=== PATIENT | female | born 1935 | race Caucasian/White ===

== ENCOUNTER 2019-12-23 00:27 | Inpatient (IN) | payer MEDICARE, OTHER ==
[2019-12-23 01:11] LABS: #Lymphocytes 1.3 thou/uL (1.20-3.40); #Monocytes 0.3 thou/uL (0.11-0.59); #Neutrophils 5.4 thou/uL (1.40-6.50); %Basophils 0.7 % (0.0-1.0); %Eosinophils 0.1 % (0.0-10.0); %Monocytes 4.4 % (0.0-10.0); %Neutrophils 76.8 % (42.0-75.0); Hemoglobin 7.3 g/dL (12.0-16.0); Mean Corpuscular HGB CONC 32.9 g/dL (32.0-36.0); Mean Corpuscular Hemoglobin 29.4 pg (27.0-31.0); Mean Corpuscular Volume 89.4 fL (78.0-98.0); Mean Platelet Volume 8.7 fL (7.4-10.4); Platelet Count 161 thou/uL (130-400); RBC Distribution Width 13.2 % (11.5-14.5); White Blood Cell (WBC) Count 7.1 thou/uL (4.8-10.8)
[2019-12-23] MEDS: Dextrose 5 % And 0.9 % NaCl 1,000 ML IV SCH ×3 (02:57→21:25)
[2019-12-23] MEDS ORDERED: Sodium Chloride 0.9% (PF) 10 ML VIAL FS PRN (03:00)
--- NOTE | 2019-12-23 03:02 | HP ---
REASON FOR ADMISSION: Anemia. HISTORY OF PRESENT ILLNESS: This is an 84-year-old female patient, who today felt weak and became nauseous and started having episodes of vomiting. She described the vomitus as dark colored. She called her son who tried to help her to drink some Gatorade, but she vomited the Gatorade and for that reason, he called the ambulance. Up on the EMS arrival, she could not stand up and she did lose consciousness. She was brought to the ER at [place]. She was reported to be covered with red blood. The patient does not recall having blood through her rectum. In our emergency room, she had a small amount of dark stool. At [place], she did receive 1 unit of PRBC. In our emergency room, her blood pressure appears to be stable. Her heart rate is less than 100. She appears to be doing better. Denies abdominal pain. She does report being on naproxen for a year. She takes two naproxen a day and also she takes sulindac on a daily basis for her osteoarthritis. She reports experiencing two episodes of epigastric pain that resolved spontaneously. PAST MEDICAL HISTORY: 1. Benign positional vertigo. 2. High blood pressure. 3. Hypothyroidism. 4. Status post bladder lift. 5. Cataract surgery. 6. . 7. Cholecystectomy. 8. Appendectomy. 9. Corneal transplant. 10. Back surgery and chronic back pain. 11. Osteoarthritis. ALLERGIES: TO CODEINE WHICH MAKES HER NAUSEOUS. PENICILLIN, WHICH GIVES HER RASH AND SULFA. SOCIAL HISTORY: She does not smoke. Does not drink alcohol. FAMILY HISTORY: Negative for premature coronary artery disease. REVIEW OF SYSTEMS: All systems reviewed, except the above mentioned, found to be negative. PHYSICAL EXAMINATION: GENERAL: Awake, alert, oriented, does not appear in distress. VITAL SIGNS: Her blood pressure is 136/71, heart rate of 75, temperature is 98.7, saturating 100% on 2 L nasal cannula. HEENT: Head is nontraumatic, normocephalic. Pupils equal, reactive. Extraocular movements are intact. Nonicteric sclerae. Well injected conjunctivae. Oral mucosa normal. Nasal mucosa normal. NECK: Supple. No adenopathy. No murmur. Thyroid is not palpable. Trachea is midline. No supraclavicular adenopathy. HEART: S1, S2 regular. No murmur. No gallops. No friction rubs. No displacement of PMI. LUNGS: Clear to auscultation bilaterally. No wheezes, rhonchi, no crackles. Bowel sounds are positive. Nontender abdomen. No hepatosplenomegaly. EXTREMITIES: No lower extremity edema. No cyanosis. NEURO: Cranial nerves 2 through 12 within normal limits. Normal motor function. Normal sensory function reflexes. LABORATORY DATA: Blood work shows sodium 138, potassium 3.9, bicarb of 23, BUN of 46.6, creatinine 0.8, TSH of 0.2556. Troponin less than 0.01. CK 140, CK-MB 2.8. Hemoglobin initially 6.9, repeat in our hospital is 7.3 after 1 unit of PRBCs. Platelets of 193. Urinalysis does not show any evidence of infection. INR is 1.1. EKG shows normal sinus rhythm per my read. ASSESSMENT AND PLAN: This is an 84-year-old female patient, who is presenting with severe anemia, episode of hypotension in the setting of rectal bleed versus upper gastrointestinal bleed secondary to chronic usage of NSAIDs. GI: The patient does not remember that she had rectal bleeding. This was noted at the ER in [place] here. She did have dark stools, but small amount. She could have an upper gastrointestinal bleed, but also a lower gastrointestinal bleed. She currently has not had any further episodes of bleeding. We will keep her n.p.o. We will start her on IV Protonix. We will monitor her H and H. GI is aware of her and they will see her in the morning. We will hold all NSAIDs. For deep venous thrombosis prophylaxis, will be on SCDs. Cardiac: The patient has high blood pressure. For now, we will hold off on her antihypertensive agents. She is currently normotensive. The patient has history of hypothyroidism. We will resume levothyroxine when she is no longer n.p.o. I did discuss with her code status. She wishes to be a full code. Job ID: [id number]
[2019-12-23 06:03] LABS: Anion Gap 11 mmol/L (10-20); BUN (Urea Nitrogen) 39 mg/dL (9.8-20.1); Calc. Creatinine Clearance 0 mL/min (70-130); Calcium 6.9 mg/dL (7.8-10.44); Carbon Dioxide 16 mmol/L (23-31); Chloride 116 mmol/L (98-107); Estimated GFR-MDRD Greater than 90; Glucose 83 mg/dL (83-110); Potassium 4.3 mmol/L (3.5-5.1); Sodium 139 mmol/L (136-145)
[2019-12-23 06:07] LABS: Band 4 % (5-11); Eosinophils 2 % (0-10); Hemoglobin 8.1 g/dL (12.0-16.0); Lymphocytes 28 % (21-51); MDiff Complete? YES; Mean Corpuscular HGB CONC 31.8 g/dL (32.0-36.0); Mean Corpuscular Hemoglobin 29.6 pg (27.0-31.0); Mean Corpuscular Volume 93.1 fL (78.0-98.0); Mean Platelet Volume 9.8 fL (7.4-10.4); Monocytes 2 % (0-10); Neutrophil 64 % (42-75); Platelet Count 124 thou/uL (130-400); Platelet Morphology Comment Appears Adequate; RBC Distribution Width 13.3 % (11.5-14.5); Red Blood Cell (RBC) Count 2.73 mill/uL (4.20-5.40); White Blood Cell (WBC) Count 7.2 thou/uL (4.8-10.8)
[2019-12-23] MEDS: Pantoprazole 40 MG VIAL IVP SCH ×2 (08:35→21:25)
[2019-12-23] MEDS ORDERED: Ondansetron PF 4 MG/2 ML Vial ONE (08:51)
[2019-12-23] MEDS: Ondansetron PF 4 MG/2 ML Vial IVP PRN (08:51)
[2019-12-23 10:27] LABS: Hemoglobin 6.4 g/dL (12.0-16.0)
--- NOTE | 2019-12-23 11:52 | PDOC.HOSPP ---
- Subjective Encounter Date: 12/23/19 Encounter Time: 10:00 Subjective: is actively bleeding per rectum sbp dropped to 70's around 9.30 am, got fluid bolus has recieved total of 2 u prbc so far awake, no nausea or vomiting, has abd colic with moaning responds to verbal questions no chest pain or sob - Objective Result Diagrams: 12/23/19 10:19 12/23/19 05:29 Hospitalist ROS - Medication Medications: Active Medications Generic Name Dose Route Start Last Admin Trade Name Freq PRN Reason Stop Dose Admin Dextrose/Sodium Chloride 1,000 mls @ 75 mls/hr 12/23/19 02:30 12/23/19 02:57 D5 0.9% Ns IV 1,000 mls .[id number] BETHANY Administration Ondansetron HCl 4 mg 12/23/19 02:19 12/23/19 08:51 Ondansetron Pf 4 Mg/2 Ml Vial IVP 4 mg Q6H PRN Administration Nausea/Vomiting Pantoprazole Sodium 40 mg 12/23/19 09:00 12/23/19 08:35 Pantoprazole 40 Mg Vial IVP 40 mg Q12HR BETHANY Administration - Exam General Appearance: ill appearing General - other findings: pallor++ Eye: PERRL, anicteric sclera ENT: no oropharyngeal lesions, moist mucosa Neck: supple, no JVD Heart: RRR, no murmur Respiratory: no wheezes, no rales, rhonchi Gastrointestinal: soft, non-tender, non-distended, normal bowel sounds Extremities: no cyanosis, no edema Neurological: cranial nerve grossly intact, no focal deficits Hosp A/P (1) GI hemorrhage Code(s): K92.2 - GASTROINTESTINAL HEMORRHAGE, UNSPECIFIED Status: Acute Qualifiers: GI bleed type/associated pathology: unspecified gastrointestinal hemorrhage type Qualified Code(s): K92.2 - Gastrointestinal hemorrhage, unspecified (2) Acute blood loss anemia Code(s): D62 - ACUTE POSTHEMORRHAGIC ANEMIA Status: Acute (3) Hypothyroidism Code(s): E03.9 - HYPOTHYROIDISM, UNSPECIFIED Status: Chronic Qualifiers: Hypothyroidism type: unspecified Qualified Code(s): E03.9 - Hypothyroidism, unspecified (4) Benign positional vertigo Code(s): H81.10 - BENIGN PAROXYSMAL VERTIGO, UNSPECIFIED EAR Status: Chronic Qualifiers: Laterality: unspecified laterality Qualified Code(s): H81.10 - Benign paroxysmal vertigo, unspecified ear - Plan has recieved 2 u prbc, will need another 2 units, Hb around 6g now, hypotensive d/w , will see her shortly and scope if she remains unstable then transfer to [facility] protonix q12h, iv fluids h/o taking naprosyn 2/day and sulindac for osteoarthritis
[2019-12-23] MEDS ORDERED: Metoclopramide HCl 10 MG/2 ML VIAL ONE (13:20)
[2019-12-23 13:36] LABS: SARS-CoV-2 MS2 Positive; SARS-CoV-2 N Gene Negative; SARS-CoV-2 S Gene Negative; SARS-CoV-2 by NAA Not Detected (NotDetected); SARS-CoV-2 orf1ab Negative
[2019-12-23] MEDS ORDERED: Lidocaine 1% PF 5 ML VIAL ONE (13:46)
[2019-12-23] MEDS ORDERED: PROPOFOL 200 MG/20 ML VIAL ONE (13:46)
[2019-12-23] MEDS ORDERED: Fentanyl 100 MCG/2 ML VIAL ONE (17:03)
[2019-12-23 17:45] VITALS: BMI 23.1
--- NOTE | 2019-12-23 17:51 | CON ---
DATE OF CONSULTATION: 12/23/2019 REASON FOR CONSULTATION: Anemia, blood in stool, probable upper GI bleed. CONSULTING PROVIDER: Thelma Shaw MD HISTORY OF PRESENT ILLNESS: The patient is an 84-year-old female with past medical history of benign positional vertigo, hypertension, hypothyroidism, and chronic lower back pain and osteoarthritis, presenting with complaints of diarrhea, presyncope, and nausea and vomiting. She states that she was in her usual state of health until yesterday when she began having increased generalized weakness, nausea and vomiting of darker-colored material in addition to "feeling sick to my stomach." She was then evaluated by her son who tried to get her some Gatorade to drink which she promptly vomited again with more darker-colored emesis at that time. With the increased nausea and vomiting, it prompted her son to call EMS, which then transported her to [facility]. While at the [facility], she was noted to have a significantly decreased H and H and did have overt evidence of GI bleeding characterized as bright red/maroon-colored stool. Given the higher likelihood of an upper GI bleed, she was subsequently transferred to [facility] in [place], [place], for further evaluation. While in the ER, she had two additional burgundy-colored stools in addition to hypotension and tachycardia, for which the patient has been responding well with the infusion of both IV fluids and PRBCs. Currently, she states that she is feeling better, but does continue to have some mild abdominal discomfort that she could not characterize further. On further interviewing the patient, this has never happened before, but she does have a longstanding history of NSAID use consisting of both naproxen and sulindac, which she has been taking for years. Currently, she denies any fevers, chills, dysphagia, odynophagia, or weight loss. REVIEW OF SYSTEMS: A 10-category review of systems was obtained with all responses negative except for the pertinent positives as listed in HPI. PAST MEDICAL HISTORY: As per HPI. PAST SURGICAL HISTORY: Bladder lift surgery, cataract surgery, , cholecystectomy, appendectomy, and corneal transplant. FAMILY HISTORY: Denies any GI malignancies. SOCIAL HISTORY: No mention of any alcohol, tobacco, or IV drug use. OUTPATIENT MEDICATIONS: Reviewed. ALLERGIES: PENICILLIN, SULFA, AND CODEINE. PHYSICAL EXAMINATION: VITAL SIGNS: Temperature has not been recorded in the chart. However, heart rate 111, blood pressure 156/62, respiratory rate 22, saturating 93% on room air. GENERAL: The patient was lying in bed, in mild distress. Alert and oriented x4. HEENT: Normocephalic, atraumatic. NECK: Supple. No JVD or scleral icterus noted. CARDIOVASCULAR: Tachycardic rate, but regular rhythm. No discernible murmurs, gallops, or rubs. RESPIRATORY: Clear to auscultation bilaterally with no discernible wheezes or rales. ABDOMEN: Normoactive bowel sounds. Soft, nontender, and nondistended. EXTREMITIES: No cyanosis, clubbing, or edema. LABORATORY DATA: CBC with a white blood cell count of 7.2, hemoglobin 8.1, hematocrit 25.5, platelets 124. Chemistry with a sodium of 139, potassium 4.3, chloride 116, CO2 of 16, BUN 39, creatinine 0.62, glucose 83. IMAGING DATA: No current GI imaging is available for review. ASSESSMENT AND PLAN: The patient is an 84-year-old female with past medical history of benign positional vertigo, hypertension, hypothyroidism, chronic lower back pain and osteoarthritis, presenting with tachycardia, hypotension, and significant anemia consistent with an upper GI bleed. Upper GI bleeding. The patient was in her usual state of health until yesterday when she had generalized weakness, nausea, vomiting of dark-colored material and feeling generalized "sick to her stomach." She was subsequently seen at [facility], noted to have a significant anemia in addition to hematochezia concerning for GI bleed. With her transfer to [facility], she has had two additional episodes of burgundy/bright red blood per rectum and given her recent NSAID use, an elevated BUN to creatinine ratio is concerning for the presence of an upper GI bleed. Differential could include esophagitis, gastritis, duodenitis, peptic ulcer disease (more likely), arteriovenous malformation, Dieulafoy lesion and/or GI neoplasm. RECOMMENDATIONS: 1. Would continue to trend her H and H and transfuse as necessary to maintain an H and H of 7/21. 2. Continue to monitor clinically for signs of active GI bleeding. 3. Agree with IV fluids and resuscitation with blood products. 4. We will keep the patient n.p.o. in anticipation of EGD later today. 5. Would give the patient metoclopramide 10 mg IV x1 to clear her stomach and provide for more adequate visualization during upper endoscopy. 6. Further recommendations to follow upper endoscopy. We will continue to follow. Please call with any questions. Job ID: [id number]
[2019-12-23 18:19] LABS: #Lymphocytes 1.6 thou/uL (1.20-3.40); #Monocytes 0.5 thou/uL (0.11-0.59); #Neutrophils 6.1 thou/uL (1.40-6.50); %Basophils 0.5 % (0.0-1.0); %Eosinophils 0.5 % (0.0-10.0); %Lymphocytes 19.2 % (21.0-51.0); %Monocytes 6.3 % (0.0-10.0); %Neutrophils 73.5 % (42.0-75.0); Hemoglobin 9.3 g/dL (12.0-16.0); Mean Corpuscular HGB CONC 33.4 g/dL (32.0-36.0); Mean Corpuscular Hemoglobin 29.3 pg (27.0-31.0); Mean Corpuscular Volume 87.7 fL (78.0-98.0); Mean Platelet Volume 9.1 fL (7.4-10.4); Platelet Count 111 thou/uL (130-400); RBC Distribution Width 13.5 % (11.5-14.5); Red Blood Cell (RBC) Count 3.17 mill/uL (4.20-5.40); White Blood Cell (WBC) Count 8.3 thou/uL (4.8-10.8)
[2019-12-23 18:24] LABS: INR-International Normal Ratio 1.1; PTT 24.6 sec (22.9-36.1); Prothrombin Time 14.1 sec (12.0-14.7)
--- NOTE | 2019-12-23 20:09 | OP ---
DATE OF PROCEDURE: 12/23/2019 PROCEDURE: Esophagogastroduodenoscopy with biopsy. INDICATION FOR PROCEDURE: Blood in stool, melena, significant anemia. DESCRIPTION OF PROCEDURE: After the risks and benefits of the procedure were explained to the patient, including risks of bleeding, infection, perforation, reactions to anesthesia, aspiration, and/or pain, informed consent was obtained. The patient was then taken to the endoscopy suite where she was maneuvered into the left lateral decubitus position, followed by introduction of deep sedation via propofol and anesthesia support. Once adequate sedation was achieved, the standard gastroscope was introduced into the mouth with intubation of the esophagus, stomach, and the proximal small intestines with the findings listed below. The patient tolerated the procedure well with no immediate perioperative complications. Upon conclusion of the procedure, all equipments were removed from the patient and she was transferred to PACU in satisfactory condition. FINDINGS: Esophagus: Normal-appearing mucosa was seen in the proximal, mid, and distal esophagus. There was no evidence of erosions, ulcerations, mass lesions, or active/recent bleeding. Stomach: Normal-appearing mucosa was seen in the gastric cardia, fundus, and proximal body. However, a 4 mm clean-based ulceration was seen in the mid gastric body near the lesser curvature that did not display any high-risk stigmata of active or recent bleeding. Biopsies were taken from this ulceration with increased bleeding with these biopsies, but did actively resolve with direct visualization. Otherwise, normal-appearing mucosa was seen along the greater curvature as well as the incisura. Three 1 to 2 mm superficial clean-based ulcerations were also seen in the antrum and the pre-pyloric region. None of these ulcerations exhibited any high-risk stigmata of active or recent bleeding. Biopsies were also taken from these ulcerations for further evaluation. No blood or recent blood was seen throughout the entire stomach. Otherwise, there was no evidence of mass lesions or active/recent bleeding seen throughout the entire stomach. Duodenum: Normal-appearing mucosa was seen in both the duodenal bulb and second and third portion of the duodenum. The upper endoscope was advanced as far as it could with no evidence of blood or blood clot within the small intestine. There was no evidence of erosions, ulcerations, mass lesions, or active/recent bleeding. IMPRESSION: 1. Multiple gastric ulcerations with the largest measuring 4 mm in size along the lesser curvature, none of which exhibited high-risk stigmata of bleeding, now status post biopsies for evaluation of possible H. pylori versus NSAIDs. 2. Otherwise normal upper endoscopy. 3. No etiology for the patient's recent hematemesis or melena was seen during this examination. RECOMMENDATIONS: 1. Would continue to trend her H and H and transfuse as necessary to maintain an H and H of 10/20. 2. Continue to monitor clinically for signs of active GI bleeding. 3. Would place the patient on a clear-liquid diet today with monitoring of the patient overnight. If she continues to have a decrease in her H and H or she exhibits further evidence of clinical active bleeding, then I would prep her for colonoscopy for further evaluation. 4. Would avoid any anticoagulation in light of recent GI bleed. 5. Would continue pantoprazole 40 mg IV b.i.d. We will continue to follow. Please call with any questions. Job ID: [id number]
[2019-12-23] MEDS: Melatonin 3 MG TAB PO PRN (22:36)
[2019-12-24 05:59] LABS: #Basophils 0.1 thou/uL (0.0-0.2); #Eosinphils 0.3 thou/uL (0.0-0.7); #Lymphocytes 1.9 thou/uL (1.20-3.40); #Monocytes 0.7 thou/uL (0.11-0.59); #Neutrophils 5.4 thou/uL (1.40-6.50); %Basophils 0.8 % (0.0-1.0); %Eosinophils 3.9 % (0.0-10.0); %Lymphocytes 22.6 % (21.0-51.0); %Monocytes 7.8 % (0.0-10.0); %Neutrophils 64.9 % (42.0-75.0); Hemoglobin 7.2 g/dL (12.0-16.0); Mean Corpuscular HGB CONC 33.4 g/dL (32.0-36.0); Mean Corpuscular Hemoglobin 29.3 pg (27.0-31.0); Mean Corpuscular Volume 87.5 fL (78.0-98.0); Mean Platelet Volume 8.9 fL (7.4-10.4); Platelet Count 100 thou/uL (130-400); RBC Distribution Width 13.9 % (11.5-14.5); Red Blood Cell (RBC) Count 2.46 mill/uL (4.20-5.40); White Blood Cell (WBC) Count 8.4 thou/uL (4.8-10.8)
[2019-12-24] MEDS: Pantoprazole 40 MG VIAL IVP SCH ×2 (07:50→21:33)
[2019-12-24] MEDS ORDERED: Fluorometholone 0.1% Ophth Soln 5 ml Bottle R EYE SCH (09:45)
--- NOTE | 2019-12-24 13:36 | PDOC.HOSPP ---
- Subjective Encounter Date: 12/24/19 Encounter Time: 08:15 Subjective: wants eye drops for dry eyes no abd pain or nausea still has black stools - Objective Vital Signs & Weight: Vital Signs (12 hours) Temp Pulse Resp BP Pulse Ox 12/24/19 11:33 98.4 F 86 20 160/77 H 97 12/24/19 07:44 98.6 F 86 20 150/72 H 97 12/24/19 04:00 98.6 F 90 16 153/67 H 99 Weight Weight 143 lb 6 oz I&O: 12/23/19 12/24/19 12/25/19 06:59 06:59 06:59 Output Total 1000 Balance -1000 Result Diagrams: 12/24/19 05:22 12/23/19 05:29 Hospitalist ROS - Medication Medications: Active Medications Generic Name Dose Route Start Last Admin Trade Name Freq PRN Reason Stop Dose Admin Dextrose/Sodium Chloride 1,000 mls @ 75 mls/hr 12/23/19 02:30 12/23/19 21:25 D5 0.9% Ns IV 1,000 mls .[id number] BETHANY Administration Melatonin 3 mg 12/23/19 21:09 12/23/19 22:36 Melatonin 3 Mg Tab PO 3 mg HS PRN Administration Insomnia Ondansetron HCl 4 mg 12/23/19 02:19 12/23/19 08:51 Ondansetron Pf 4 Mg/2 Ml Vial IVP 4 mg Q6H PRN Administration Nausea/Vomiting Pantoprazole Sodium 40 mg 12/23/19 09:00 12/24/19 07:50 Pantoprazole 40 Mg Vial IVP 40 mg Q12HR BETHANY Administration - Exam General Appearance: awake alert, ill appearing General - other findings: pallor+ Eye: PERRL, anicteric sclera ENT: no oropharyngeal lesions, dry oral mucosa Neck: supple, no JVD Heart: RRR, no murmur Respiratory: no wheezes, no rales Gastrointestinal: soft, non-tender, non-distended, normal bowel sounds Extremities: no cyanosis, no edema Neurological: cranial nerve grossly intact, no focal deficits Psychiatric: normal affect, A&O x 3 Hosp A/P (1) GI hemorrhage Code(s): K92.2 - GASTROINTESTINAL HEMORRHAGE, UNSPECIFIED Status: Acute Qualifiers: GI bleed type/associated pathology: unspecified gastrointestinal hemorrhage type Qualified Code(s): K92.2 - Gastrointestinal hemorrhage, unspecified (2) Acute blood loss anemia Code(s): D62 - ACUTE POSTHEMORRHAGIC ANEMIA Status: Acute (3) Hypothyroidism Code(s): E03.9 - HYPOTHYROIDISM, UNSPECIFIED Status: Chronic Qualifiers: Hypothyroidism type: unspecified Qualified Code(s): E03.9 - Hypothyroidism, unspecified (4) Benign positional vertigo Code(s): H81.10 - BENIGN PAROXYSMAL VERTIGO, UNSPECIFIED EAR Status: Chronic Qualifiers: Laterality: unspecified laterality Qualified Code(s): H81.10 - Benign paroxysmal vertigo, unspecified ear - Plan has recieved total of 4 u prbc this admission s/p EGD 12/22, no active bleeding seen, has H.pylori +ve gastritis serial h/h, had drop in her Hb this am to 7g from 9g earlier protonix q12h, iv fluids, oral diet per GI advice h/o taking naprosyn 2/day and sulindac for osteoarthritis
[2019-12-24] MEDS ORDERED: Furosemide 40 MG/4 ML VIAL SLOW IVP SCH (13:45)
[2019-12-24 14:02] LABS: Hemoglobin 6.9 g/dL (12.0-16.0)
[2019-12-24 15:56] LABS: ALT (SGPT) 14 U/L (8-55); AST (SGOT) 15 U/L (5-34); Albumin 2.1 g/dL (3.4-4.8); Alkaline Phosphatase 44 U/L (40-110); Anion Gap 8 mmol/L (10-20); BUN (Urea Nitrogen) 28 mg/dL (9.8-20.1); Bilirubin, Total 0.3 mg/dL (0.2-1.2); Calc. Creatinine Clearance 71 mL/min (70-130); Calcium 7.2 mg/dL (7.8-10.44); Carbon Dioxide 20 mmol/L (23-31); Chloride 115 mmol/L (98-107); Estimated GFR-MDRD Greater than 90; Globulin 1.4 g/dL (2.4-3.5); Glucose 98 mg/dL (83-110); Potassium 3.4 mmol/L (3.5-5.1); Protein, Total 3.5 g/dL (6.0-8.3); Sodium 140 mmol/L (136-145)
--- NOTE | 2019-12-24 15:59 | PRG ---
DATE OF SERVICE: 12/24/2019 SUBJECTIVE: Ms. Ratliff is resting in bed. She states she does not feel all that well. She is concerned that she is having swelling. She denies any shortness of breath. She has had some mild nausea. She has had a little bit of soup, but nothing else. The nurses report she has had no bowel movements. They have emptied her catheter twice today. I have talked to Dr. Samayoa, primary physician. He is concerned as her hemoglobin dropped back down from 9.3 yesterday evening after she finished her transfusion to 7.2 this morning. She is 6.9 this afternoon. Again, on talking with her nurse, she said she has had no bowel movements. MEDICATIONS: Presently, 1. Normal saline at 75. 2. Furosemide 40, just ordered. 3. Melatonin. 4. Zofran p.r.n. 5. Protonix 40 IV q.12 hours. 6. Eye drops. PHYSICAL EXAMINATION: VITAL SIGNS: Temperature is 98, pulse 86, blood pressure 160/70. HEENT: Conjunctiva are pale pink. Sclera are clear. Oropharynx is dry, but pink. LUNGS: Clear. HEART: Regular rate and rhythm without clicks or murmurs. ABDOMEN: Soft and nontender with no rebound or guarding. EXTREMITIES: Reveal 2 to 3+ edema. LABORATORY DATA: White count 28.4. Hemoglobin was 7.2, it was 9.3 yesterday after receiving a unit of blood at outside hospital and 3 units of blood here. Her hemoglobin had been 7.3 on presentation here and it had dropped to 6.4 yesterday. Platelets are 100,000, down from 161 on admission. INR was 1.1. BUN and creatinine were 39 and 0.6 yesterday. ASSESSMENT: 1. Gastrointestinal bleed with history, seen yesterday by Dr. Allred and had an upper endoscopy with ulcers found in the incisura and small antral ulcers. None were very large. None were bleeding. There was no obvious clot in the stomach. Her stigmata indicate high risk for bleeding. She was taking heavy doses of nonsteroidal anti-inflammatory drugs at home. Biopsy did show Helicobacter pylori. 2. Drop in hemoglobin slightly today with edema, but she has passed no bowel movement at all. I think ongoing hemorrhage is unlikely. RECOMMENDATIONS: 1. Agree with plan to transfuse further blood, 1 unit would probably be fine, 2 is okay if that is what has already been decided. 2. Agree with Lasix with transfusion. 3. We will check a CMP to look at liver function in light of her problems with edema. 4. If she would have overt bleeding, we can consider tagged blood cell scan at this time, but she is very frail and with her edema, I do not think it would be a good idea to proceed with an elective colonoscopy at this time, although it is possible that her bleeding site could be her right colon with ulcers there from NSAIDs or other etiology. With no overt hemorrhage, her age, and comorbidities, we would hold off for now. Job ID: [id number]
[2019-12-24] MEDS: Ondansetron PF 4 MG/2 ML Vial IVP PRN ×2 (16:32→22:29)
--- NOTE | 2019-12-24 17:00 | PDOC.FMACP ---
Advance Care Planning - Problem (1) Palliative care encounter Status: Acute Code(s): Z51.5 - ENCOUNTER FOR PALLIATIVE CARE (2) Acute blood loss anemia Status: Acute Code(s): D62 - ACUTE POSTHEMORRHAGIC ANEMIA (3) GI hemorrhage Status: Acute Code(s): K92.2 - GASTROINTESTINAL HEMORRHAGE, UNSPECIFIED Qualifiers: GI bleed type/associated pathology: unspecified gastrointestinal hemorrhage type Qualified Code(s): K92.2 - Gastrointestinal hemorrhage, unspecified - Note Participants: patient, family, palliative care Summary: Palliative Care introduced Advanced Care Planning, opportunity to decline. The diagnosis, prognosis and goals of care were discussed. Appropriate forms and documentation to accomplish the goals of care were discussed. All questions were answered. Elected to complete MPOA and Directive to Physician. Original and copy given to patient, copy placed on chart for medical records. Time Spent (mins): 15
--- NOTE | 2019-12-24 20:44 | NM ---
NUCLEAR MEDICINE GI BLEEDING SCAN: 12/24/19 PROVIDED CLINICAL HISTORY: GI bleed. FINDINGS: 29.3 millicuries technetium 99m labeled tagged red blood cells were given intravenously followed by a nterior planar imaging over the abdomen for 93 minutes. There is a normal distribution of radiotracer . There is gradual focal accumulation of radiotracer overlying the left mid abdomen beginning about t he 81 or 82 minute image in the expected location of the mid descending colon. Although this does not move on progressive images this is suspicious site of active GI bleeding. IMPRESSION: Focal radiotracer accumulation overlying the expected location of the descending colon is suspicious for site of GI bleed. POS: [facility]
[2019-12-24] MEDS: Dextrose 5 % And 0.9 % NaCl 1,000 ML IV SCH (21:33)
[2019-12-24] MEDS ORDERED: diphenhydrAMINE 25 MG CAP PO SCH (22:45)
[2019-12-25 04:27] LABS: Hemoglobin 8.3 g/dL (12.0-16.0)
[2019-12-25 04:41] LABS: Anion Gap 8 mmol/L (10-20); BUN (Urea Nitrogen) 27 mg/dL (9.8-20.1); Calc. Creatinine Clearance 69 mL/min (70-130); Calcium 7.1 mg/dL (7.8-10.44); Carbon Dioxide 24 mmol/L (23-31); Chloride 112 mmol/L (98-107); Estimated GFR-MDRD Greater than 90; Glucose 88 mg/dL (83-110); Potassium 3.1 mmol/L (3.5-5.1); Sodium 141 mmol/L (136-145)
[2019-12-25] MEDS: Fluorometholone 0.1% Ophth Soln 5 ml Bottle R EYE SCH (08:12)
[2019-12-25] MEDS: Pantoprazole 40 MG VIAL IVP SCH ×2 (08:13→19:26)
[2019-12-25] MEDS: Dextrose 5 % And 0.9 % NaCl 1,000 ML IV SCH ×2 (08:13→19:27)
[2019-12-25] MEDS: Ondansetron PF 4 MG/2 ML Vial IVP PRN ×2 (08:13→12:28)
[2019-12-25] MEDS: Polyvinyl Alcohol 1.4%/Povidone 0.6% Opth Drops EA EYE SCH (08:34)
[2019-12-25] MEDS ORDERED: GoLYTELY 4,000 ml Bottle PO SCH (09:00)
--- NOTE | 2019-12-25 11:28 | PDOC.HOSPP ---
- Subjective Encounter Date: 12/25/19 Encounter Time: 07:15 Subjective: no abd pain, has nausea had one bm yesterday/early am no dizziness or chest pain - Objective Vital Signs & Weight: Vital Signs (12 hours) Temp Pulse Pulse Resp BP BP Pulse Ox 12/25/19 07:58 98.6 F 77 20 146/78 H 97 12/25/19 04:00 98.1 F 82 16 136/72 96 12/25/19 01:40 98.8 F 82 18 137/77 95 Weight Weight 143 lb 6 oz I&O: 12/24/19 12/25/19 12/26/19 06:59 06:59 06:59 Intake Total 1075 Output Total 1000 775 Balance -1000 300 Result Diagrams: 12/25/19 04:01 12/25/19 04:01 Hospitalist ROS - Medication Medications: Active Medications Generic Name Dose Route Start Last Admin Trade Name Freq PRN Reason Stop Dose Admin Fluorometholone 1 drop 12/25/19 09:00 12/25/19 08:12 Fluorometholone 0.1% Ophth Soln 5 Ml Bottle R EYE 1 drp DAILY BETHANY Administration Dextrose/Sodium Chloride 1,000 mls @ 75 mls/hr 12/23/19 02:30 12/25/19 08:13 D5 0.9% Ns IV Not Given .[id number] BETHANY Melatonin 3 mg 12/23/19 21:09 12/23/19 22:36 Melatonin 3 Mg Tab PO 3 mg HS PRN Administration Insomnia Ondansetron HCl 4 mg 12/23/19 02:19 12/25/19 08:13 Ondansetron Pf 4 Mg/2 Ml Vial IVP 4 mg Q6H PRN Administration Nausea/Vomiting Pantoprazole Sodium 40 mg 12/23/19 09:00 12/25/19 08:13 Pantoprazole 40 Mg Vial IVP 40 mg Q12HR BETHANY Administration Polyethylene Glycol/Electrolytes 4,000 ml 12/25/19 09:00 12/25/19 10:30 Golytely 4,000 Ml Bottle PO 12/25/19 23:59 4,000 ml NOW BETHANY Administration Polyvinyl Alcohol/Povidone 0 each 12/25/19 09:00 12/25/19 08:34 Polyvinyl Alcohol 1.4%/Povidone 0.6% Opth Drops EA EYE 1 each DAILY BETHANY Administration Sodium Chloride 10 ml 12/23/19 03:00 12/25/19 08:12 Sodium Chloride 0.9% (Pf) 10 Ml Vial FS 10 ml PRN PRN Administration RECONSTITUTION - Exam General Appearance: awake alert Eye: PERRL, anicteric sclera ENT: no oropharyngeal lesions, moist mucosa Neck: supple, no JVD Heart: RRR, no murmur Respiratory: no wheezes, no rales Gastrointestinal: soft, non-tender, non-distended, normal bowel sounds Extremities: no cyanosis, 1+ LE edema Neurological: cranial nerve grossly intact, no focal deficits Psychiatric: normal affect, A&O x 3 Hosp A/P (1) GI hemorrhage Code(s): K92.2 - GASTROINTESTINAL HEMORRHAGE, UNSPECIFIED Status: Acute Qualifiers: GI bleed type/associated pathology: unspecified gastrointestinal hemorrhage type Qualified Code(s): K92.2 - Gastrointestinal hemorrhage, unspecified (2) Acute blood loss anemia Code(s): D62 - ACUTE POSTHEMORRHAGIC ANEMIA Status: Acute (3) Hypothyroidism Code(s): E03.9 - HYPOTHYROIDISM, UNSPECIFIED Status: Chronic Qualifiers: Hypothyroidism type: unspecified Qualified Code(s): E03.9 - Hypothyroidism, unspecified (4) Benign positional vertigo Code(s): H81.10 - BENIGN PAROXYSMAL VERTIGO, UNSPECIFIED EAR Status: Chronic Qualifiers: Laterality: unspecified laterality Qualified Code(s): H81.10 - Benign p aroxysmal vertigo, unspecified ear - Plan has recieved total of 5 here and one in [facility] prbc this admission s/p EGD 12/22, no active bleeding seen, has H.pylori +ve gastritis, for treatment once she stabilizes with bleeding now. serial h/h protonix q12h, iv fluids for colonoscopy in am h/o taking naprosyn 2/day and sulindac for osteoarthritis
[2019-12-25] MEDS ORDERED: Furosemide 40 MG/4 ML VIAL SLOW IVP SCH (11:30)
--- NOTE | 2019-12-25 11:37 | PRG ---
DATE OF SERVICE: 12/25/2019 SUBJECTIVE: Ms. Ratliff is not having any abdominal pain. She does feel weak. She continues to have nausea but no vomiting. She had a single bowel movement overnight, which was dark black in color; with 2 units of RBC transfusion again last night, hemoglobin came up from 6.9 to 8.3. Her tagged RBC scan yesterday evening appeared to show bleeding source in the left mid abdomen, which is estimated to be descending colon. She is on clear liquid diet right now. OBJECTIVE: VITAL SIGNS: Temperature 98.6, pulse 77, blood pressure 146/78, 97% oxygen saturation on room air. GENERAL: Frail, pale, 84-year-old woman, lying in bed comfortably, in no acute distress. HEART: Regular rate and rhythm. LUNGS: Clear to auscultation bilaterally. ABDOMEN: Nondistended. Bowel sounds present. Soft and nontender to palpation. EXTREMITIES: 1+ bilateral lower extremity edema. LABORATORY STUDIES: Hemoglobin 8.3, WBC 8.4, platelets 100. INR 1.1. Sodium 141, potassium 3.1, BUN 27, creatinine 0.60, total bilirubin 0.3, alkaline phosphatase 44, AST 15, ALT 14, albumin 2.1. COVID PCR is negative. IMAGING STUDIES: Nuclear medicine GI bleeding scan yesterday appeared to show active hemorrhage in the left mid abdomen, which is estimated to represent descending colon. ASSESSMENT/PLAN: 1. Gastrointestinal bleeding, with tagged RBC scan suggesting descending colon source. 2. Acute blood loss anemia, the patient has required 5 units of RBCs this admission, hemoglobin currently 8.3. 3. Helicobacter pylori gastritis with ulcer, seen on EGD two days ago, 12/23/2019. I had a long discussion with the patient this morning, though she is not having bright red blood per rectum and stool output seems to be slowing down, the tagged RBC scan did suggest a left colon bleeding source last night. She says her last colonoscopy would have been many years ago. I think we are going to have to proceed with diagnostic colonoscopy for further evaluation. She is feeling nauseated today, but we are going to try to administer bowel preparation, we will go ahead and start now and allow her to go slowly over the course of the day. We will plan for colonoscopy tomorrow morning. In the meantime, continue to trend H and H, transfuse as needed. 4. Helicobacter pylori gastritis with ulcer. The patient is going to need treatment with triple therapy. We can get her started on this following resolution of the acute bleeding episode. Job ID: [id number]
[2019-12-25 15:39] LABS: Hemoglobin 8.1 g/dL (12.0-16.0)
[2019-12-25] MEDS ORDERED: Ondansetron PF 4 MG/2 ML Vial IVP PRN (15:55)
[2019-12-26] MEDS: Melatonin 3 MG TAB PO PRN (00:17)
[2019-12-26 01:08] LABS: Hemoglobin 6.3 g/dL (12.0-16.0)
--- NOTE | 2019-12-26 01:47 | PDOC.EVN ---
Event Note - Event Note Event Note: Patient finishing her colonoscopy prep this morning and still passing black tarry stools. Previous H/H six hours ago was 8.1/22.6 and now it is 6.3/18.1. Does have report of some weakness but also feels it is possibly from the prep itself. Discussed patient with Dr. Oglesby, will transfuse 2 additional units of packed cells. Continue to monitor H&H.
[2019-12-26] MEDS ORDERED: Calcium Gluc 4.6 MEQ/10 ML (100 MG/ML) SLOW IVP SCH (07:17)
[2019-12-26] MEDS ORDERED: Heparin 1,000 UNITS/ML VIAL ONE (09:08)
[2019-12-26] MEDS: Polyvinyl Alcohol 1.4%/Povidone 0.6% Opth Drops EA EYE SCH (10:00)
[2019-12-26] MEDS: Fluorometholone 0.1% Ophth Soln 5 ml Bottle R EYE SCH (10:00)
[2019-12-26] MEDS: Pantoprazole 40 MG VIAL IVP SCH ×2 (10:00→20:32)
[2019-12-26 12:10] LABS: Hemoglobin 9.4 g/dL (12.0-16.0)
--- NOTE | 2019-12-26 12:15 | PDOC.HOSPP ---
- Subjective Encounter Date: 12/26/19 Encounter Time: 09:40 Subjective: had colonoscopy with repeat egd this am no active bleeding per rectum not dizzy this am son at bedside - Objective Vital Signs & Weight: Vital Signs (12 hours) Temp Pulse Pulse Resp BP BP Pulse Ox 12/26/19 07:28 98.5 F 77 16 137/75 96 12/26/19 06:19 98.3 F 82 17 148/73 H 97 12/26/19 06:03 98.8 F 81 18 135/70 100 12/26/19 05:19 98.1 F 80 17 135/76 97 12/26/19 04:31 98.0 F 81 17 126/69 97 12/26/19 02:45 98.4 F 89 17 129/60 97 12/26/19 02:30 98.8 F 91 18 132/71 12/26/19 00:31 98.3 F 92 18 142/78 H 90 L Weight Weight 143 lb 6 oz I&O: 12/25/19 12/26/19 12/27/19 06:59 06:59 06:59 Intake Total 1075 2700 Output Total 775 600 Balance 300 2100 Result Diagrams: 12/26/19 11:46 12/25/19 04:01 Hospitalist ROS - Medication Medications: Active Medications Generic Name Dose Route Start Last Admin Trade Name Freq PRN Reason Stop Dose Admin Fluorometholone 1 drop 12/25/19 09:00 12/26/19 10:00 Fluorometholone 0.1% Ophth Soln 5 Ml Bottle R EYE 1 drp DAILY BETHANY Administration Dextrose/Sodium Chloride 1,000 mls @ 75 mls/hr 12/23/19 02:30 12/25/19 19:27 D5 0.9% Ns IV 1,000 mls .[id number] BETHANY Administration Melatonin 3 mg 12/23/19 21:09 12/26/19 00:17 Melatonin 3 Mg Tab PO 3 mg HS PRN Administration Insomnia Pantoprazole Sodium 40 mg 12/23/19 09:00 12/26/19 10:00 Pantoprazole 40 Mg Vial IVP 40 mg Q12HR BETHANY Administration Polyvinyl Alcohol/Povidone 0 each 12/25/19 09:00 12/26/19 10:00 Polyvinyl Alcohol 1.4%/Povidone 0.6% Opth Drops EA EYE 1 each DAILY BETHANY Administration Sodium Chloride 10 ml 12/23/19 03:00 12/25/19 08:12 Sodium Chloride 0.9% (Pf) 10 Ml Vial FS 10 ml PRN PRN Administration RECONSTITUTION - Exam General Appearance: awake alert Eye: PERRL, anicteric sclera ENT: no oropharyngeal lesions, dry oral mucosa Neck: supple, no JVD Heart: RRR, no murmur Respiratory: no wheezes, no rales Gastrointestinal: soft, non-tender, non-distended, normal bowel sounds Extremities: no cyanosis, no edema Neurological: cranial nerve grossly intact, no focal deficits Psychiatric: normal affect, A&O x 3 Hosp A/P (1) GI hemorrhage Code(s): K92.2 - GASTROINTESTINAL HEMORRHAGE, UNSPECIFIED Status: Acute Qualifiers: GI bleed type/associated pathology: unspecified gastrointestinal hemorrhage type Qualified Code(s): K92.2 - Gastrointestinal hemorrhage, unspecified (2) Acute blood loss anemia Code(s): D62 - ACUTE POSTHEMORRHAGIC ANEMIA Status: Acute (3) Hypothyroidism Code(s): E03.9 - HYPOTHYROIDISM, UNSPECIFIED Status: Chronic Qualifiers: Hypothyroidism type: unspecified Qualified Code(s): E03.9 - Hypothyroidism, unspecified (4) Benign positional vertigo Code(s): H81.10 - BENIGN PAROXYSMAL VERTIGO, UNSPECIFIED EAR Status: Chronic Qualifiers: Laterality: unspecified laterality Qualified Code(s): H81.10 - Benign paroxysmal vertigo, unspecified ear - Plan has recieved total of 7 u prbc's here and one in [facility] this admission s/p EGD 12/22, no active bleeding seen, has H.pylori +ve gastritis, for treatment once she stabilizes with bleeding now. repeat EGD and Colonoscopy today 12/25, no active bleeding source, d/w serial h/h protonix q12h, iv fluids, liq diet h/o taking naprosyn 2/day and sulindac for osteoarthritis seen ambulating in hallway without assistance d/w son 12/24, 12/25.
[2019-12-26] MEDS: Dextrose 5 % And 0.9 % NaCl 1,000 ML IV SCH ×2 (12:24→16:54)
[2019-12-26] MEDS ORDERED: PROPOFOL 200 MG/20 ML VIAL ONE (13:25)
--- NOTE | 2019-12-26 14:13 | OP ---
DATE OF PROCEDURE: 12/26/2019 [employer] SURGEON: None. PROCEDURES PERFORMED: 1. Colonoscopy, incomplete. 2. Esophagogastroduodenoscopy, diagnostic. INDICATIONS: 1. Acute blood loss anemia, requiring multiple transfusions this hospitalization. 2. Suspicious for gastrointestinal bleed, based on melenic-appearing stools. 3. Tagged RBC scan suggesting bleeding in the left abdomen, potentially left colonic source. MEDICATIONS: See Anesthesia record. FINDINGS: After discussion of the risks, benefits, and alternatives of the procedure, informed consent was obtained and witnessed. Pre-endoscopic cardiopulmonary examination was satisfactory. Time-out was performed before sedation was achieved. Sedation was achieved with Anesthesia assistance in the endoscopy unit. Digital rectal exam was performed, which was unremarkable. A Pentax adult colonoscope was inserted into the anus and passed forward in the usual fashion. The entire colon was extremely tortuous. There was a lot of looping of the scope, requiring manual pressure and loop reduction as well as the patient position changes to the supine position. Despite all of these measures, I was unable to advance the scope beyond the hepatic flexure. I was able to get a good examination of the transverse colon and left colon, but I was not able to examine the right colon. Where examined, the colonic mucosa all appeared normal. There was no evidence of any old blood or fresh blood in the colon at all. The effluent was clear. There were diverticula in the descending colon and especially the sigmoid colon, but no evidence of any inflammation. There were no polyps or mass lesions visualized. Careful forward view of the rectum was unremarkable. The colonoscope was completely withdrawn and it was decided to proceed with repeat upper endoscopy. A Pentax adult upper endoscope was placed into the oropharynx and passed through the cricopharyngeus under direct visualization. The esophageal mucosa appeared normal throughout. The endoscope was advanced into the stomach. Forward and retroflexed views of the entire gastric mucosa were obtained. There were 2 small, bland, shallow, clean-based ulcerations in the gastric antrum. There was no evidence of recent bleeding or any stigmata of high risk for bleeding. The endoscope was passed through the pylorus, then into the first and second portions of the duodenum, which were unremarkable. There was no old blood or fresh blood on the upper exam. The upper endoscope was completely withdrawn and the patient allowed to recover. The patient tolerated the procedures well. There were no immediate postprocedure complications. IMPRESSION: 1. No old blood or fresh blood or active bleeding seen, effluent in the colon is clear. 2. Very tortuous colon, able to examine only to the hepatic flexure. The right colon was unable to be examined. 3. Left-sided colonic diverticulosis, with no evidence of bleeding, no evidence of diverticulitis. 4. Two small, bland, clean-based ulcers in the gastric antrum, with no stigmata of bleeding or high risk for rebleeding. 5. Otherwise normal esophagogastroduodenoscopy. RECOMMENDATIONS: 1. Continue to trend hemoglobin and hematocrit. 2. Observe for any further sign of overt bleeding. 3. If the patient's hemoglobin and hematocrit trend down further without significant overt bleeding visualized, then I would get a CT of the abdomen and pelvis to rule out intraabdominal bleed. 4. Full liquid diet today. Job ID: [id number]
[2019-12-26] MEDS: Ondansetron PF 4 MG/2 ML Vial IVP PRN ×2 (16:54→23:53)
[2019-12-26 19:21] LABS: Hemoglobin 7.9 g/dL (12.0-16.0)
--- NOTE | 2019-12-26 23:46 | NM ---
Nuclear medicine GI bleeding scan: 12/26/2019 10:52 PM HISTORY: 84-year-old female with gastrointestinal bleeding and anemia. Dr. Paredes discussed the positive finding of GI bleeding by telephone with nurse Angelica Hurt at 11:41 PM 12/26/2019 TECHNIQUE: IV injection of 28.7 mCi technetium 99m tagged erythrocytes. Anterior view dynamic scintigraphy of abdomen and pelvis for 93 minutes. Images viewed on cine loop. FINDINGS: There is strongly positive active intraluminal hemorrhage within a loop of bowel that begins in the l eft upper quadrant, and travels by peristalsis into other bowel loops. The path of this is not typical for large intestine. IMPRESSION: Positive for active gastrointestinal bleeding, probably in the small intestine, beginning in the left upper quadrant, probably in the jejunum
[2019-12-27 00:55] LABS: Hemoglobin 6.6 g/dL (12.0-16.0)
--- NOTE | 2019-12-27 01:19 | PDOC.EVN ---
Event Note - Event Note Event Note: Code [place] called due to hypotension in context of ongoing GI blood loss of unclear source. s/p total 8u PRBC's during the hospital stay. EGD/colonoscopy unrevealing source. Tagged RBC scan showing likely source in jejunum. Pt lying trendelenburg, BP 104/66, pale, responds to questions, HR 90's, LCTAB, CV S1, S2, ABD rounded NT, ND, BS +, extremities pale with delayed cap refill, melanic stool in diaper H/H - Laboratory Tests 12/25/19 12/25/19 12/26/19 04:01 15:21 00:56 Hgb 8.3 L 8.1 L 6.3 L 12/26/19 12/26/19 12/27/19 11:46 19:13 00:45 Hgb 9.4 L 7.9 L 6.6 L A/P: Active GI bleeding - 2L IV NS wide open in two IV's, transfuse 2u unmatched PRBC's now, spoke with Gen Surgery(Dr. Espana) regarding utility of exploratoy laparotomy and he will consider after resuscitative measures and transfusions in am, serial H/H, O2 via NC, continue Protonix IV, Zofran 8mg IV q6h prn Acute blood loss anemia - see above, transfuse by rapid infuser 2u PRBC's now Hypotension - secondary to blood loss, see above for mgmt, avoid ant ihypertensives Tachycardia - compensatory due to ongoing blood loss, telemetry monitoring Transfer to [facility] for close monitoring Critical care provided by me: 38min
[2019-12-27 01:52] VITALS: BP 52/37
[2019-12-27] MEDS: Ondansetron PF 4 MG/2 ML Vial IVP PRN ×2 (05:52→11:40)
[2019-12-27 06:57] LABS: #Eosinphils 0.1 thou/uL (0.0-0.7); #Lymphocytes 1.2 thou/uL (1.20-3.40); #Monocytes 0.6 thou/uL (0.11-0.59); #Neutrophils 8.6 thou/uL (1.40-6.50); %Basophils 0.5 % (0.0-1.0); %Eosinophils 0.7 % (0.0-10.0); %Lymphocytes 11.4 % (21.0-51.0); %Monocytes 5.6 % (0.0-10.0); %Neutrophils 81.7 % (42.0-75.0); Hemoglobin 9.5 g/dL (12.0-16.0); Mean Corpuscular HGB CONC 34.8 g/dL (32.0-36.0); Mean Corpuscular Hemoglobin 30.9 pg (27.0-31.0); Mean Corpuscular Volume 88.9 fL (78.0-98.0); Mean Platelet Volume 9.5 fL (7.4-10.4); Platelet Count 73 thou/uL (130-400); RBC Distribution Width 13.9 % (11.5-14.5); Red Blood Cell (RBC) Count 3.07 mill/uL (4.20-5.40); White Blood Cell (WBC) Count 10.5 thou/uL (4.8-10.8)
[2019-12-27 07:14] LABS: Anion Gap 10 mmol/L (10-20); BUN (Urea Nitrogen) 19 mg/dL (9.8-20.1); Calc. Creatinine Clearance 74 mL/min (70-130); Calcium 6.6 mg/dL (7.8-10.44); Carbon Dioxide 23 mmol/L (23-31); Chloride 112 mmol/L (98-107); Estimated GFR-MDRD Greater than 90; Glucose 100 mg/dL (83-110); Sodium 142 mmol/L (136-145)
[2019-12-27] MEDS ORDERED: Potassium Chloride 20 MEQ in Premix Bag 1 BAG IVPB SCH (07:45)
[2019-12-27] MEDS: Pantoprazole 40 MG VIAL IVP SCH ×2 (08:54→21:12)
[2019-12-27] MEDS: Fluorometholone 0.1% Ophth Soln 5 ml Bottle R EYE SCH (09:12)
[2019-12-27] MEDS: Polyvinyl Alcohol 1.4%/Povidone 0.6% Opth Drops EA EYE SCH (09:14)
--- NOTE | 2019-12-27 09:16 | PDOC.HOSPP ---
- Subjective Encounter Date: 12/27/19 Encounter Time: 09:15 Subjective: Ms. Ratliff was seen today in follow-up of GI blled and acute blood loss anemia. She was moved to the [facility] last night. She denies abdominal pain, but is complaining of severe nausea. - Objective Vital Signs & Weight: Vital Signs (12 hours) Temp Pulse Pulse Pulse Pulse Resp Resp 12/27/19 07:04 98.2 F 12/27/19 01:56 12/27/19 01:34 72 76 77 18 12/26/19 23:57 98.5 F 90 20 BP BP BP BP BP BP Pulse Ox 12/27/19 07:04 12/27/19 01:56 100 12/27/19 01:34 52/37 L 86/42 L 103/60 125/69 126/72 12/26/19 23:57 104/66 97 Pulse Ox 12/27/19 07:04 12/27/19 01:56 12/27/19 01:34 95 12/26/19 23:57 Weight Weight 143 lb 6 oz Most Recent Monitor Data Heart Rate from ECG 68 NIBP 138/61 NIBP BP-Mean 86 Respiration from ECG 14 SpO2 100 I&O: 12/26/19 12/27/19 12/28/19 06:59 06:59 06:59 Intake Total 2700 2700 Output Total 1800 400 Balance 900 2300 Result Diagrams: 12/27/19 06:45 12/27/19 06:45 Hospitalist ROS - Medication Medications: Active Medications Generic Name Dose Route Start Last Admin Trade Name Freq PRN Reason Stop Dose Admin Fluorometholone 1 drop 12/25/19 09:00 12/26/19 10:00 Fluorometholone 0.1% Ophth Soln 5 Ml Bottle R EYE 1 drp DAILY BETHANY Administration Melatonin 3 mg 12/23/19 21:09 12/26/19 00:17 Melatonin 3 Mg Tab PO 3 mg HS PRN Administration Insomnia Ondansetron HCl 4 mg 12/25/19 16:00 12/26/19 23:53 Ondansetron Pf 4 Mg/2 Ml Vial IVP 4 mg Q4H PRN Administration Nausea/Vomiting Ondansetron HCl 8 mg 12/27/19 01:38 12/27/19 05:52 Ondansetron Pf 4 Mg/2 Ml Vial IVP 8 mg Q6H PRN Administration Nausea/Vomiting Pantoprazole Sodium 40 mg 12/23/19 09:00 12/26/19 20:32 Pantoprazole 40 Mg Vial IVP 40 mg Q12HR BETHANY Administration Polyvinyl Alcohol/Povidone 0 each 12/25/19 09:00 12/26/19 10:00 Polyvinyl Alcohol 1.4%/Povidone 0.6% Opth Drops EA EYE 1 each DAILY BETHANY Administration Sodium Chloride 10 ml 12/23/19 03:00 12/25/19 08:12 Sodium Chloride 0.9% (Pf) 10 Ml Vial FS 10 ml PRN PRN Administration RECONSTITUTION - Exam Eye: PERRL, anicteric sclera Heart: RRR, no murmur, no gallops, no rubs, normal peripheral pulses Respiratory: CTAB, no wheezes, no rales, no ronchi, normal chest expansion, no tachypnea, normal percussion Gastrointestinal: soft, non-tender, non-distended, normal bowel sounds, no palpable masses, no hepatomegaly Extremities: no cyanosis, no edema Hosp A/P (1) Acute blood loss anemia Code(s): D62 - ACUTE POSTHEMORRHAGIC ANEMIA Status: Acute (2) GI hemorrhage Code(s): K92.2 - GASTROINTESTINAL HEMORRHAGE, UNSPECIFIED Status: Acute Qualifiers: GI bleed type/associated pathology: unspecified gastrointestinal hemorrhage type Qualified Code(s): K92.2 - Gastrointestinal hemorrhage, unspecified (3) Hypothyroidism Code(s): E03.9 - HYPOTHYROIDISM, UNSPECIFIED Status: Chronic Qualifiers: Hypothyroidism type: unspecified Qualified Code(s): E03.9 - Hypothyroidism, unspecified (4) Hypokalemia Code(s): E87.6 - HYPOKALEMIA Status: Acute - Plan * GI Bleed- the patient continues to have evidence of GI- Bleeding. * Discussed with Dr. Espana. It is still unclear where the bleeding is originating from. The Bleeding scans give differing findings. * Acute blood loss anemia- she has required massive transfusions * Hypothyroidism- may need to give the thyroid replacement IV , at 2/3 the dose if she remains NPO. * Continue to trend the H&H and transfuse as needed * Hypokalemia- continue to replace
[2019-12-27] MEDS: Promethazine HCl 25 MG in Sodium Chloride 0.9% 50 ML IVPB PRN (09:30)
[2019-12-27] MEDS: D5 1/2 NS w/40 mEq KCL 1,000 ML IV SCH ×3 (10:00→17:50)
--- NOTE | 2019-12-27 11:06 | PRG ---
DATE OF SERVICE: 12/27/2019 SUBJECTIVE: Yesterday evening, Ms. Ratliff started passing maroon blood clots again. She has continued to drop her H and H and required further transfusion this morning. She has now received 8 units of blood. Hemoglobin is currently 9.5. She has remained hemodynamically stable, but feeling weak and nauseated. There is no abdominal pain. Tagged RBC scan was done last night, and at this time, is highly suggestive of a jejunal bleed. OBJECTIVE: VITAL SIGNS: Temperature 98.2, pulse 68, blood pressure 138/61, and 100% oxygen saturation on room air. GENERAL: Pale, frail, no acute distress. HEART: Regular rate and rhythm. LUNGS: Clear to auscultation bilaterally. ABDOMEN: Nondistended. Bowel sounds present. Soft and nontender to palpation. EXTREMITIES: No peripheral edema. LABORATORY STUDIES: Sodium 142, potassium 3.0, BUN 19, creatinine 0.56, and calcium 6.6. COVID-PCR is negative. INR is 1.1. Hemoglobin went down to 6.6 around midnight, up to 9.5 after further transfusion. WBC is 10.5 and platelets 73. IMAGING STUDIES: Repeat nuclear medicine GI bleeding scan from last night showed strongly positive active intraluminal hemorrhage within a loop of bowel in the left upper quadrant traveling by peristalsis and other bowel loops, appears to be in the small intestine, probably the jejunum. ASSESSMENT AND PLAN: 1. Obscure overt gastrointestinal hemorrhage, persistent. 2. Acute blood loss anemia, has required massive transfusion this hospitalization of 8 units RBCs. 3. Gastric antral ulcers x2, small and clean based, these were not felt to be the source of any hemorrhage. 4. Colonic diverticulosis, also not felt to be the source of hemorrhage. I discussed the case with Dr. Espana who evaluated her this morning. The patient is not a good surgical candidate. I spoke with Dr. Deluca as well. This second tagged RBC finding highly suggestive of jejunal bleeding does make the most sense clinically and taking into account the essentially negative upper and lower endoscopy findings. I think the best course would be to try to get the patient transferred urgently to a tertiary center with Interventional Radiology for angiography and possible embolization of bleeding lesion. In the meantime, continue to monitor H and H closely and transfuse as needed. There is no role for repeat endoscopy at this time. Job ID: [id number] [facility]
--- NOTE | 2019-12-27 17:43 | PDOC.EVN ---
Event Note - Event Note Event Note: Ms. Parra is back from [place]. I spoke with the Interventional Radiologist there. He was not able to locate a bleeding vessel. No embolization was performed. It is suspected that she is bleeding intermittently. Patient was assessed. Her vitals are stable. She is awake, a bit drowsy, in bed. She does not have any complaints her physical exam is unchanged Will cut her IV fluids back Continue IV Protonix Re-check H&H in the AM Notify GI and Surgery of her return
[2019-12-28 04:00] LABS: #Eosinphils 0.5 thou/uL (0.0-0.7); #Lymphocytes 1.4 thou/uL (1.20-3.40); #Monocytes 0.5 thou/uL (0.11-0.59); #Neutrophils 5.1 thou/uL (1.40-6.50); %Basophils 0.2 % (0.0-1.0); %Eosinophils 6.7 % (0.0-10.0); %Lymphocytes 18.7 % (21.0-51.0); %Monocytes 6.4 % (0.0-10.0); Hemoglobin 7.7 g/dL (12.0-16.0); Mean Corpuscular HGB CONC 34.9 g/dL (32.0-36.0); Mean Corpuscular Volume 88.8 fL (78.0-98.0); Mean Platelet Volume 10.6 fL (7.4-10.4); Platelet Count 58 thou/uL (130-400); RBC Distribution Width 14.8 % (11.5-14.5); Red Blood Cell (RBC) Count 2.46 mill/uL (4.20-5.40); White Blood Cell (WBC) Count 7.6 thou/uL (4.8-10.8)
[2019-12-28 04:17] LABS: Anion Gap 9 mmol/L (10-20); BUN (Urea Nitrogen) 17 mg/dL (9.8-20.1); Calc. Creatinine Clearance 70 mL/min (70-130); Calcium 6.9 mg/dL (7.8-10.44); Carbon Dioxide 21 mmol/L (23-31); Chloride 113 mmol/L (98-107); Estimated GFR-MDRD Greater than 90; Glucose 90 mg/dL (83-110); Potassium 3.3 mmol/L (3.5-5.1); Sodium 140 mmol/L (136-145)
[2019-12-28] MEDS: D5 1/2 NS w/40 mEq KCL 1,000 ML IV SCH (04:51)
[2019-12-28] MEDS ORDERED: Levothyroxine Sodium 125 MCG TAB PO SCH (09:00)
--- NOTE | 2019-12-28 09:31 | PDOC.HOSPP ---
- Subjective Encounter Date: 12/28/19 Encounter Time: : Subjective: Ms. Ratliff was seen today in follow-up of GI Bleed. She does not have any complaints. - Objective Vital Signs & Weight: Vital Signs (12 hours) Temp 12/28/19 07:18 98.6 F 12/28/19 03:52 98.4 F 12/27/19 23:33 98.4 F Weight Weight 143 lb 6 oz Most Recent Monitor Data Heart Rate from ECG 77 NIBP 150/67 NIBP BP-Mean 94 Respiration from ECG 13 SpO2 100 I&O: 12/27/19 12/28/19 12/29/19 06:59 06:59 06:59 Intake Total 2700 2490 Output Total 400 1740 Balance 2300 750 Result Diagrams: 12/28/19 03:33 12/28/19 03:33 Hospitalist ROS - Medication Medications: Active Medications Generic Name Dose Route Start Last Admin Trade Name Freq PRN Reason Stop Dose Admin Fluorometholone 1 drop 12/25/19 09:00 12/27/19 09:12 Fluorometholone 0.1% Ophth Soln 5 Ml Bottle R EYE 1 drp DAILY BETHANY Administration Promethazine HCl 25 mg/ Sodium 51 mls @ 204 mls/hr 12/27/19 09:14 12/27/19 09:30 Chloride IVPB 51 mls Q6H PRN Administration Nausea/Vomiting Potassium Chloride/Dextrose/Sod Cl 1,000 mls @ 70 mls/hr 12/27/19 17:39 12/28/19 04:51 D5 1/2 Ns W/40 Meq Kcl IV 1,000 mls .[id number] BETHANY Administration Melatonin 3 mg 12/23/19 21:09 12/26/19 00:17 Melatonin 3 Mg Tab PO 3 mg HS PRN Administration Insomnia Ondansetron HCl 4 mg 12/25/19 16:00 12/26/19 23:53 Ondansetron Pf 4 Mg/2 Ml Vial IVP 4 mg Q4H PRN Administration Nausea/Vomiting Ondansetron HCl 8 mg 12/27/19 01:38 12/27/19 11:40 Ondansetron Pf 4 Mg/2 Ml Vial IVP 8 mg Q6H PRN Administration Nausea/Vomiting Pantoprazole Sodium 40 mg 12/23/19 09:00 12/27/19 21:12 Pantoprazole 40 Mg Vial IVP 40 mg Q12HR BETHANY Administration Polyvinyl Alcohol/Povidone 0 each 12/25/19 09:00 12/27/19 09:14 Polyvinyl Alcohol 1.4%/Povidone 0.6% Opth Drops EA EYE 1 each DAILY BETHANY Administration Sodium Chloride 10 ml 12/23/19 03:00 12/25/19 08:12 Sodium Chloride 0.9% (Pf) 10 Ml Vial FS 10 ml PRN PRN Administration RECONSTITUTION - Exam Eye: PERRL, anicteric sclera Heart: RRR, no murmur, no gallops, no rubs, normal peripheral pulses Respiratory: CTAB, no wheezes, no rales, no ronchi, normal chest expansion Gastrointestinal: soft, non-tender, non-distended, normal bowel sounds, no palpable masses, no hepatomegaly Extremities: no cyanosis, no edema Hosp A/P (1) Acute blood loss anemia Code(s): D62 - ACUTE POSTHEMORRHAGIC ANEMIA Status: Acute (2) GI hemorrhage Code(s): K92.2 - GASTROINTESTINAL HEMORRHAGE, UNSPECIFIED Status: Acute Qualifiers: GI bleed type/associated pathology: unspecified gastrointestinal hemorrhage type Qualified Code(s): K92.2 - Gastrointestinal hemorrhage, unspecified (3) Hypothyroidism Code(s): E03.9 - HYPOTHYROIDISM, UNSPECIFIED Status: Chronic Qualifiers: Hypothyroidism type: unspecified Qualified Code(s): E03.9 - Hypothyroidism, unspecified (4) Hypokalemia Code(s): E87.6 - HYPOKALEMIA Status: Acute - Plan * GI Bleed- her H&H has dropped some - likely from equilibration * Discussed with Dr. Bo. There is concern that she could bleed again. She was not bleeding at the time of angiography yesterday, and the site may have been missed. [facility] can offer double barrel endoscopy, and embolization, should he re-bleed. Will initiate transfer to [facility] * Hypothyroidism-will re-start synthroid * Hypokalemia- continue to replace
[2019-12-28] MEDS: Pantoprazole 40 MG VIAL IVP SCH (09:33)
[2019-12-28] MEDS: Fluorometholone 0.1% Ophth Soln 5 ml Bottle R EYE SCH (09:34)
[2019-12-28] MEDS: Polyvinyl Alcohol 1.4%/Povidone 0.6% Opth Drops EA EYE SCH (09:35)
--- NOTE | 2019-12-28 09:37 | PRG ---
DATE OF SERVICE: 12/28/2019 SUBJECTIVE: The patient received 2 more units of RBC transfusion yesterday, but continued to have overt bleeding with maroon stools and clots. We sent her to [facility] to perform angiography. Unfortunately, the angiogram was unable to identify any bleeding lesion and it was felt that whatever is bleeding is likely bleeding only intermittently. Therefore, no treatment or coil embolization was performed. Since arrival back, she has been hemodynamically stable. She has passed some gas and smears of blood. Hemoglobin is again down today to 7.7. She is not having any abdominal pain. She is feeling weak and also frustrated with lack of resolution of the bleeding. OBJECTIVE: VITAL SIGNS: Temperature 98.6, blood pressure 135/66, pulse 68. GENERAL: Pale, frail, in no acute distress. HEART: Regular rate and rhythm. LUNGS: Clear to auscultation bilaterally. ABDOMEN: Soft, nontender to palpation. EXTREMITIES: No peripheral edema. LABORATORY STUDIES: Hemoglobin down again to 7.7, WBC is 7.6, and platelets 58. INR 1.1. Sodium 140, potassium 3.3, BUN 17, creatinine 0.59, and calcium 6.9. COVID PCR is negative. ASSESSMENT AND PLAN: 1. Obscure overt gastrointestinal bleeding, intermittent and persistent. 2. Acute blood loss anemia, has required massive transfusion this hospitalization of 8 units of RBCs. Hemoglobin back down to 7.7. Continue to monitor closely and transfuse as needed. 3. Gastric antral ulcer x2, small and clean based, these are not felt to be the source of any hemorrhage. 4. Colonic diverticulosis, also not felt to be the source of hemorrhage. Appreciate the assistance of Dr. Espana as well as Dr. Deluca. The patient is going to continue on a clear liquid diet with close observation. The second tagged RBC finding of brisk of jejunal bleeding still makes the most sense clinically, despite the negative angiogram findings, taking into account the essentially negative upper and lower endoscopy findings. The patient needs better small-bowel evaluation as the bleeding has been so active and persistent, I do not think we are going to be able to get her discharged for outpatient capsule endoscopy. Rather, we should seek to transfer to a tertiary center for single or double-balloon enteroscopy. Job ID: [id number]
[2019-12-28 09:52] LABS: Hemoglobin 7.9 g/dL (12.0-16.0); Platelet Count 90 thou/uL (130-400)
--- NOTE | 2019-12-28 10:10 | CON ---
DATE OF CONSULTATION: 12/28/2019 CHIEF COMPLAINT: Bleeding. HISTORY OF PRESENT ILLNESS: This is an 84-year-old female with a history of diverticulosis, who presents with a GI bleed. She has had upper and lower endoscopy during this hospitalization. She has continued to pass bloody stools, although none in the last 24 hours. She has had 8 units of packed red blood cell transfusions. She has been hemodynamically stable in between brief episodes of hypotension when she has an active bloody bowel movement. She was transferred to [facility] yesterday where she had mesenteric angio, which revealed no obvious bleeding. She has had no bleeding overnight. She has no complaints today. PAST MEDICAL HISTORY: Includes vertigo, hypertension, hypothyroidism, and osteoarthritis. PAST SURGICAL HISTORY: Bladder lift, cataracts, , cholecystectomy, appendectomy, and corneal transplant. FAMILY HISTORY: Noncontributory. No history of GI malignancy or anesthetic related complications. ALLERGIES: TO PENICILLIN, SULFA, AND CODEINE. SOCIAL HISTORY: No smoking or alcohol or other drugs. 10-system review of systems is otherwise negative, described above. PHYSICAL EXAMINATION: VITAL SIGNS: Blood pressure 135/66, her pulse is 68, and her respirations are 12. She is afebrile. HEENT: Sclerae are anicteric. Oropharynx clear. NECK: No lymphadenopathy. CHEST: Clear. HEART: Regular rate. ABDOMEN: Soft, nontender, and nondistended. LABORATORY DATA: This morning, white blood cell count is 7, hemoglobin is 7.7, and platelet count is 58. Sodium 140, potassium 3.3, and creatinine 0.59. Bleeding scan from 12/23 showed likely left colon distribution. Bleeding scan from 12/25 showed likely small bowel bleeding. ASSESSMENT: Gastrointestinal bleed, confusing picture. She has had negative upper and lower endoscopy. She does have diverticulosis. She does have small nonbleeding ulcerated lesions to the stomach from nonsteroidal anti-inflammatory drug use. Bleeding scan most recently showed small bowel accumulation. PLAN: Due to the confusing picture, the origin of this bleed would make any surgical procedure very difficult. The suspicion now is it is small intestine and this will hopefully stop on its own. Continue to follow. I would not be opposed to a clear liquid diet today. Job ID: [id number]
[2019-12-28] MEDS: Acetaminophen 325 MG TAB PO PRN ×2 (11:58→15:50)
[2019-12-28] MEDS: Lorazepam 0.5 MG TAB PO PRN ×2 (11:58→15:50)
[2019-12-28 15:28] VITALS: TEMP 99.4
[2019-12-28 15:46] LABS: Hemoglobin 7.6 g/dL (12.0-16.0); Platelet Count 92 thou/uL (130-400)
[2019-12-28] MEDS: Promethazine HCl 25 MG in Sodium Chloride 0.9% 50 ML IVPB PRN (15:48)
--- NOTE | 2019-12-29 03:37 | DIS ---
DATE OF ADMISSION: 12/23/2019 DATE OF DISCHARGE: 12/28/2019 DISCHARGE DISPOSITION: [facility] in [place]. DISCHARGE DIAGNOSES: 1. Gastrointestinal bleed. 2. Hypothyroidism. 3. Hypertension. 4. Massive transfusions. DISCHARGE MEDICATIONS: Include: 1. Protonix 40 mg IV q.12. 2. Vitamin B12 of 100 mcg p.o. daily. 3. Vitamin D3 of 2000 units p.o. daily. 4. Ubiquinol 100 mg p.o. daily. 5. Synthroid 125 mcg p.o. daily. 6. Multivitamin once a day. 7. Potassium chloride 10 mEq p.o. b.i.d. 8. Valsartan and hydrochlorothiazide 320/12.5 mg daily. 9. Clinoril 200 mg p.o. b.i.d. 10. Calcium citrate 950 mg p.o. b.i.d. IMAGING AND PROCEDURES DONE DURING THE HOSPITAL STAY: The patient had an upper endoscopy showing multiple gastric ulcerations, none with any evidence of stigmata of bleeding. Otherwise, normal EGD. The patient had a tagged nuclear bleeding scan showing focal tracer in the descending colon. She had a repeat EGD as well as colonoscopy. The colonoscopy showed evidence of a torturous colon as well as left-sided diverticulosis, but no evidence of any bleeding. She had a repeat bleeding scan done three days later, showing evidence of tracer uptake in the jejunum. She had an echocardiogram showing an EF of 60% to 65%. The left ventricle was normal. There is mild tricuspid regurgitation. CODE STATUS: Full code. ALLERGIES: TO CODEINE, PENICILLIN, SULFA. HOSPITAL COURSE: Ms. Ratliff is a pleasant 84-year-old female, who initially presented with vomiting dark colored material which was later found to be blood as well as having melenic stools. She was admitted to the hospitalist service and GI was consulted. She underwent urgent upper endoscopy. There was no evidence of active bleeding at that time. There were some shallow ulcerations found in the stomach. For this reason, a bleeding scan was done to see if the bleeding could be localized. There was evidence of some focal tracer in the descending colon. For this reason, she underwent both upper and lower endoscopy. The upper endoscopy did not show any significant findings different from the previous. However, the colonoscopy did demonstrate some left-sided diverticulosis but no evidence of any bleeding. Therefore, it was still unclear whether the patient was losing blood. During this time, she had several episodes of both hematochezia and melenic stools. She required a total of 8 units of packed RBCs. During her episodes of bleeding, she would become hypotensive and had to be moved to the [facility]. After having the repeat bleeding scan, which showed area of tracer localized in the jejunum. She was transferred to [facility] to have arteriogram and possible embolization. Unfortunately, when she went to the other facility, there was no evidence of active bleeding at the time and for this reason, no embolization was performed. She was transferred back to our facility. She was stable throughout the night. However, the following day, she had yet another episode of very large bloody stool. Efforts were already in process of having the patient transferred to [facility] in [place] in anticipation of this very event. She was accepted in transfer for the possibility of doing a double-barrel endoscopy or possible repeat arteriogram and embolization if needed and was subsequently transferred on 12/28/2019 in stable condition. Job ID: [id number]
[2019-12-29] MEDS ORDERED: CYANOCOBALAMIN 50 MCG PO SCH (09:00)
--- NOTE | 2019-12-29 13:47 | PQF ---
CLINICAL DOCUMENTATION CLARIFICATION FORM: Dear Dr. Deluca Date: 12/29/2019 Please exercise your independent, professional judgment in responding to the clarification form. Clinical indicators are provided on the bottom of this form for your review. Please check appropriate box(s): [ ] Hypovolemic Shock [ X ] Hemorrhagic Shock due to GI bleed. [ ] Hemorrhagic Shock due to other: [ ] Hypotension secondary to blood loss. [ ] Shock Unspecified [ ] Other diagnosis [ ] Unable to determine In addition, please specify: Present on Admission (POA): [X ] Yes [ ] No [ ] Unable to determine For continuity of documentation, please document condition throughout progress notes and discharge summary. Thank You. To be completed by CDI/Coding staff for physician review: CLINICAL INDICATORS - SIGNS / SYMPTOMS / LABS / RESULTS AND LOCATION IN MR *12/26 Nurses note @ 0133: Pt states she is still nauseaous and "feels awful." Rechecked BP 52/37. Placed pt in trendelenburg position and rechecked BP, result 86/42. brief noted to be full of dark red (marroon) blood. *12/26 Event note (Mo) Pt lying trendelenburg, BP 104/66, pale, responds to questions, HR 90s LAB: Hgb 9.4 12/25 @ 1146 7.9 12/25 @ 1913 6.6 12/26 @ 0045 A/P: Hypotension - secondary to blood loss Tachycardia - compensatory due to ongoing blood loss, *12/26 pn (Case) Lab: Hemoglobin went down to 6.6 around midnight, up to 9.5 after transfusion A/P: second tagged RBC finding highly suggestive of jejunal bleeding RISK FACTORS / RESULTS AND LOCATION IN MR 12/22 pn ([place]) A/P: GI hemorrhage. Acute blood loss anemia h/o taking naprosyn 2/day and sulindac for osteoarthritis 12/26 Event Note (Mo) Code green called due to hypotension in context of ongoing GI blood loss of unclear source, s/p total 8u PRBC's during hospital stay. TREATMENTS / RESULTS AND LOCATION IN MR 12/26 Event Note (Mo) A/P: Active GI bleeding - 2L IV NS wide open in 2 IV's; transfuse 2u unmatched PRBC's now. (rapid infuser) Transfer to [facility] for close monitoring Thank you, Grazyna Jo RN, BSN [email or web address] This is a permanent part of the Medical Record [facility]
== END 2019-12-28 16:20 | disposition short-term general hospital (02) | DRG 377 ==
LOC: ERS 00:27 → ERHOLD 01:00 → T4-A 17:43 → IMCU/EMU 12-27 01:24
PROVIDERS: ADMIT Internal Medicine; ATTEND Internal Medicine
PROC: 0DB68ZX Excision of Stomach, Via Natural or Artificial Opening Endoscopic, Diagnostic (ICD-10-PCS; principal; 2019-12-23)
PROC: 30233N1 Transfusion of Nonautologous Red Blood Cells into Peripheral Vein, Percutaneous Approach (ICD-10-PCS; 2019-12-23)
PROC: 0DJ08ZZ Inspection of Upper Intestinal Tract, Via Natural or Artificial Opening Endoscopic (ICD-10-PCS; 2019-12-23)
PROC: 0DJD8ZZ Inspection of Lower Intestinal Tract, Via Natural or Artificial Opening Endoscopic (ICD-10-PCS; 2019-12-26)
DX: K92.1 Melena (principal); R57.8 Other shock; D62 Acute posthemorrhagic anemia; Q43.8 Other specified congenital malformations of intestine; E03.9 Hypothyroidism, unspecified; Z20.828 Contact with and (suspected) exposure to other viral communicable diseases; I10 Essential (primary) hypertension; I07.1 Rheumatic tricuspid insufficiency; E78.5 Hyperlipidemia, unspecified; H81.10 Benign paroxysmal vertigo, unspecified ear; M19.90 Unspecified osteoarthritis, unspecified site; G89.29 Other chronic pain; M54.9 Dorsalgia, unspecified; K25.9 Gastric ulcer, unspecified as acute or chronic, without hemorrhage or perforation; K29.70 Gastritis, unspecified, without bleeding; B96.81 Helicobacter pylori [H. pylori] as the cause of diseases classified elsewhere; K57.30 Diverticulosis of large intestine without perforation or abscess without bleeding; I95.9 Hypotension, unspecified; E87.6 Hypokalemia; K92.0 Hematemesis; Z88.5 Allergy status to narcotic agent; Z88.0 Allergy status to penicillin; Z88.2 Allergy status to sulfonamides; Z98.49 Cataract extraction status, unspecified eye; Z90.49 Acquired absence of other specified parts of digestive tract; Z94.7 Corneal transplant status; Z79.1 Long term (current) use of non-steroidal anti-inflammatories (NSAID); Z79.899 Other long term (current) drug therapy; Z79.51 Long term (current) use of inhaled steroids; Z79.890 Hormone replacement therapy
CPT/HCPCS: 36415; 36430; 78278; 80048; 80053; 85014; 85018; 85025; 85610; 85730; 86850; 86900; 86901; 87635; 88305; 88312; 93306; 96374; A9604; C9113; J1644; J1940; J2405; J2550; J2704; J2765; J3010; J3480; P9016; Q0163; U0003